=== PATIENT | male | born 1995 | race Caucasian/White ===

== ENCOUNTER 2018-06-18 15:33 | Emergency (ER) | payer OTHER ==
[~2018-06-18] VITALS: Ht 180.3 cm; Wt 104.3 kg
[2018-06-18] MEDS ORDERED: ADERAL (16:01)
== END 2018-06-18 17:38 | disposition home or self-care (01) ==
LOC: ER 15:33
DX: R10.31 Right lower quadrant pain (principal); F06.4 Anxiety disorder due to known physiological condition